=== PATIENT | male | born 1985 | race African-American/Black ===

== ENCOUNTER 2020-12-22 20:05 | Emergency (ER) | payer SELFPAY ==
[~2020-12-22] VITALS: Ht 185.4 cm; Wt 83.9 kg
[2020-12-22 20:18] VITALS: BP 159/89
--- NOTE | 2020-12-22 20:22 | NUR ---
PT AAOX4. BIBSELF C/O L MIDDLE FINGER LAC. PER PT HE WAS WORKING OUT AND "SQUEEZED IT" BETWEEN WEIGHTS. NO ACUTE DISTRESS NOTED. EMT AT BEDSIDE FOR WOUND CARE. AWAITING MD FOR EVAL AND ORDERS.
[2020-12-22] MEDS ORDERED: TDAP [DIPH/PERTUSSIS/TET] 0.5 ML VIAL IM ONE (20:33)
[2020-12-22] MEDS: TDAP [DIPH/PERTUSSIS/TET] 0.5 ML VIAL IM ONE (20:40)
--- NOTE | 2020-12-22 20:40 | NUR ---
RADIOLOGY AT BEDSIDE
[2020-12-22] MEDS ORDERED: CEPH500C2 PO (21:01)
[2020-12-22] MEDS ORDERED: ACET-2605 PO (21:01)
--- NOTE | 2020-12-22 21:06 | NUR ---
Patient discharged to home in stable condition. Written and verbal after care instructions given. Patient verbalizes understanding of instruction and RX. Pt ambulated out of ED. vss.
== END 2020-12-22 21:08 | disposition home or self-care (01) ==
LOC: ER 20:16
DX: S62.633B Displaced fracture of distal phalanx of left middle finger, initial encounter for open fracture (principal); Z79.899 Other long term (current) drug therapy; W22.8XXA Striking against or struck by other objects, initial encounter; Y93.B9 Activity, other involving muscle strengthening exercises; Y92.89 Other specified places as the place of occurrence of the external cause; Y99.8 Other external cause status
CPT/HCPCS: 29130; 73140; 90471; 90715; 99283; A6403

== ENCOUNTER 2023-01-22 23:24 | Emergency (ER) | payer SELFPAY ==
[~2023-01-22] VITALS: Ht 185.4 cm; Wt 86.2 kg
[~2023-01-22 23:24] MED LIST: ACET-2605 PO; CEPH500C2 PO
--- NOTE | 2023-01-22 23:50 | NUR ---
Pt is noted in bed alert, responsive as he came from home C/O Left Ankle , Right Elbow and Right Knee pain due to S/P Fall from Stairs at X2Days ago with no Relieved with OTC MEDS . Pt care continue as awaits X-Ray for Left Ankle , Right Elbow and Right Knee as ordered.
--- NOTE | 2023-01-22 23:59 | NUR ---
INFORMATICS APPLICATION ANALYST AT PT'S BEDSIDE
--- NOTE | 2023-01-23 01:06 | NUR ---
EMT AT BED SIDE TO APPLY FAVIOLA WRAP
--- NOTE | 2023-01-23 01:13 | NUR ---
Pt is noted off the unit after been discharge to home with discharge instructions given and Left Ankle Sriram Wrap done as ordered.
[2023-01-23 01:15] VITALS: BP 145/89
== END 2023-01-23 01:16 | disposition home or self-care (01) ==
LOC: ER 23:34
DX: S82.52XA Displaced fracture of medial malleolus of left tibia, initial encounter for closed fracture (principal); S83.91XA Sprain of unspecified site of right knee, initial encounter; S50.01XA Contusion of right elbow, initial encounter; W18.30XA Fall on same level, unspecified, initial encounter; Y93.89 Activity, other specified; Y92.89 Other specified places as the place of occurrence of the external cause; Y99.8 Other external cause status
CPT/HCPCS: 73080-TC; 73564-TC; 73610-TC

== ENCOUNTER 2023-10-01 15:22 | Emergency (ER) | payer OTHER ==
[~2023-10-01] VITALS: Ht 185.4 cm; Wt 86.2 kg
[2023-10-01 16:44] VITALS: BP 141/74; TEMP 98.5; O2SAT 100
== END 2023-10-01 16:44 | disposition home or self-care (01) ==
LOC: ER 15:26
DX: S62.633A Displaced fracture of distal phalanx of left middle finger, initial encounter for closed fracture (principal); X58.XXXA Exposure to other specified factors, initial encounter; Y93.67 Activity, basketball; Y92.89 Other specified places as the place of occurrence of the external cause; Y99.8 Other external cause status
CPT/HCPCS: 73130-TC

== ENCOUNTER 2024-12-02 22:24 | Emergency (ER) | payer OTHER ==
[~2024-12-02] VITALS: Ht 185.4 cm; Wt 83.9 kg
[2024-12-02 22:55] VITALS: TEMP 98
[2024-12-03 01:22] VITALS: BP 148/86; O2SAT 99
== END 2024-12-03 01:22 | disposition home or self-care (01) ==
LOC: ER 22:27
DX: S62.603A Fracture of unspecified phalanx of left middle finger, initial encounter for closed fracture (principal); M79.641 Pain in right hand; M79.642 Pain in left hand; M25.531 Pain in right wrist; M79.652 Pain in left thigh; W05.1XXA Fall from non-moving nonmotorized scooter, initial encounter; Y93.89 Activity, other specified; Y92.89 Other specified places as the place of occurrence of the external cause; Y99.8 Other external cause status
CPT/HCPCS: 73130-TC; 73552

== ENCOUNTER 2025-06-30 05:04 | Emergency (ER) | payer OTHER ==
[~2025-06-30] VITALS: Ht 185.4 cm; Wt 88.5 kg
[2025-06-30] MEDS ORDERED: IBUP-1955 PO (07:12)
[2025-06-30 07:31] VITALS: BP 159/94; TEMP 98; O2SAT 99
== END 2025-06-30 07:32 | disposition home or self-care (01) ==
LOC: ER 05:06
DX: S83.8X1A Sprain of other specified parts of right knee, initial encounter (principal); X58.XXXA Exposure to other specified factors, initial encounter; Y93.42 Activity, yoga; Y92.89 Other specified places as the place of occurrence of the external cause; Y99.8 Other external cause status
CPT/HCPCS: 73564-TC